=== PATIENT | male | born 1965 | race Caucasian/White ===

== ENCOUNTER 2018-03-12 12:29 | Emergency (ER) | payer OTHER ==
[~2018-03-12] VITALS: Ht 185.4 cm; Wt 83.9 kg
[2018-03-12] MEDS ORDERED: TETANUS/DIPHTHERIA TOX ADULT 0.5 ML SYR IM ONE (13:15)
== END 2018-03-12 13:47 | disposition home or self-care (01) ==
LOC: ER 12:29
DX: E11.621 Type 2 diabetes mellitus with foot ulcer (principal); B20 Human immunodeficiency virus [HIV] disease
CPT/HCPCS: 90471; 90714; 99282